=== PATIENT | female | born 1945 | race Caucasian/White ===

== ENCOUNTER → 2017-02-01 | Outpatient (CLI) | payer MEDICARE, OTHER ==
[~2017-02-01] MED LIST: AMBIEN5 MG PO; CARISOPRODOL350 MG PO; CLONAZEPAM1 MG PO; CYMBALTA20 MG PO; ENDOCET 10-3251 EACH PO; ERGOCALCIF50000 UNIT PO; LORAZEPAM0.5 MG PO; NAMENDA5 MG PO; PERCOCET 10/1 TABLET PO; PERCOCET 5/31 TABLET PO; ZYRTEC10 M3 PO
== END | disposition home or self-care (01) ==
LOC: CDC 13:02
DX: T84.197A Other mechanical complication of internal fixation device of bone of left lower leg, initial encounter (principal)
CPT/HCPCS: 93000